=== PATIENT | male | born 1955 | race American Indian/Alaskan Native ===

== ENCOUNTER 2020-10-22 11:28 | Emergency (ER) | payer MEDICARE ==
[2020-10-22 13:38] VITALS: BP 143/71
--- NOTE | 2020-10-22 14:16 | Emergency Department Report ---
ED General Adult HPI - General Chief complaint: Medical Clearance Stated complaint: OUT OF MEDS Time Seen by Provider: 10/22/20 14:11 Source: patient Mode of arrival: Ambulatory Limitations: No Limitations - History of Present Illness Initial comments: 65-year-old male with a past medical history of hypertension and schizophrenia was brought to the ER today by his sister requesting refills on his meds (Invega and triamterene/HCTZ). Sister states that patient was staying in an assisted living but it closed down last year and since then he has been living with her. She states that initially she could not find patient's medication bottles, but she recently found them hidden away in a closet. She states that patient has not taken his medication for few months. She states that patient not sleeping very well at night, otherwise she and patient denies any other symptoms. Complaint: Medication Refill -: month(s) - Related Data Previous Rx's Medication Instructions Recorded Last Taken Type Paliperidone [Invega] 9 mg PO DAILY #30 tab.er.24 10/22/20 Unknown Rx Triamterene/Hydrochlorothiazid 1 each PO DAILY #30 capsule 10/22/20 Unknown Rx [Triamterene-Hctz 37.5-25 mg Cp] ED Review of Systems ROS: Stated complaint: OUT OF MEDS Other details as noted in HPI Comment: All other systems reviewed and negative Constitutional: denies: chills, fever Eyes: denies: eye pain, eye discharge, vision change ENT: denies: ear pain, throat pain, dental pain, hearing loss, epistaxis, congestion Respiratory: denies: cough, shortness of breath, SOB with exertion, SOB at rest, wheezing Cardiovascular: denies: chest pain, palpitations, edema, syncope, paroxysmal nocturnal dyspnea Gastrointestinal: denies: abdominal pain, nausea, diarrhea, constipation, hematemesis Genitourinary: denies: urgency, dysuria, frequency, hematuria, discharge, testicular pain, testicular mass Musculoskeletal: denies: back pain, joint swelling, arthralgia Skin: denies: rash, lesions Neurological: denies: headache, weakness, numbness, paresthesias, confusion, abnormal gait, vertigo Psychiatric: denies: anxiety, depression, auditory hallucinations, visual hallucinations, homicidal thoughts, suicidal thoughts Hematological/Lymphatic: denies: easy bleeding, easy bruising, swollen glands ED Past Medical Hx - Past Medical History Hx Hypertension: Yes Hx Psychiatric Treatment: Yes (schizo,) - Surgical History Past Surgical History?: Yes Additional Surgical History: colostomy - Medications Home Medications: Home Medications Medication Instructions Recorded Confirmed Last Taken Type Paliperidone [Invega] 9 mg PO DAILY #30 tab.er.24 10/22/20 Unknown Rx Triamterene/Hydrochlorothiazid 1 each PO DAILY #30 capsule 10/22/20 Unknown Rx [Triamterene-Hctz 37.5-25 mg Cp] ED Physical Exam - General Limitations: No Limitations General appearance: alert, in no apparent distress - Head Head exam: Present: atraumatic, normocephalic, normal inspection - Neck Neck exam: Present: normal inspection - Respiratory Respiratory exam: Absent: respiratory distress - Cardiovascular Cardiovascular Exam: Present: regular rate - Neurological Exam Neurological exam: Present: alert, CN II-XII intact, normal gait - Psychiatric Psychiatric exam: Present: normal mood. Absent: homicidal ideation, suicidal ideation - Expanded Psychiatric Exam Expanded Focused psych exam: Present: flight of ideas, loose associations - Skin Skin exam: Present: intact ED Course Vital Signs 10/22/20 13:35 Temperature 98.1 F Pulse Rate 66 Respiratory 17 Rate Blood Pressure 143/71 [Right] O2 Sat by Pulse 97 Oximetry Critical care attestation.: If time is entered above; I have spent that time in minutes in the direct care of this critically ill patient, excluding procedure time. ED Disposition Clinical Impression: Medication refill Disposition: DC-01 TO HOME OR SELFCARE Is pt being admited?: No Does the pt Need Aspirin: No Condition: Stable Instructions: Medicine Refill at the Emergency Department Additional Instructions: Start medications today and take as prescribed. Follow up with PCP listed on his discharge instructions. Return to ED if worse,. Prescriptions: Paliperidone [Invega] 9 mg PO DAILY #30 tab.er.24 Triamterene/Hydrochlorothiazid [Triamterene-Hctz 37.5-25 mg Cp] 1 each PO DAILY #30 capsule Referrals: JOHNNY FRANCOIS MD [Staff Physician] - 3-5 Days [facility] [Provider Group] - 3-5 Days Time of Disposition: 14:16
== END 2020-10-22 14:22 | disposition home or self-care (01) ==
LOC: ED 11:28
DX: I10 Essential (primary) hypertension (principal); F20.9 Schizophrenia, unspecified; Z76.0 Encounter for issue of repeat prescription; Z90.89 Acquired absence of other organs
CPT/HCPCS: 99281

== ENCOUNTER 2021-06-14 05:17 | Emergency (ER) | payer SELFPAY ==
[2021-06-14 07:11] VITALS: BP 132/71
--- NOTE | 2021-06-14 07:14 | Emergency Department Report ---
ED General Adult HPI - General Chief complaint: Skin Rash PUI?: No Source: EMS Mode of arrival: Stretcher Limitations: No Limitations - History of Present Illness Initial comments: 65-year-old -[place] male presents to the emergency room requesting colostomy bag replacement. Patient was seen at [facility] yesterday and was discharged on Bactrim and Bactroban the patient has not filled the prescription as he brings his discharge paperwork from there. Patient reports to me that he has been seen at [facility] and [place] and has been kicked out of both hospitals per patient. Patient denies any fever he states he just has discomfort at the site of his colostomy bag. Patient has stable vital signs not acutely ill nontoxic in appearance in no acute distress. Onset/Timin -: days(s) Location: abdomen Severity scale (0 -10): 10 Improves with: none Worsens with: none Associated Symptoms: denies other symptoms Treatments Prior to Arrival: none - Related Data Previous Rx's Medication Instructions Recorded Last Taken Type Paliperidone [Invega] 9 mg PO DAILY #30 tab.er.24 10/22/20 Unknown Rx Triamterene/Hydrochlorothiazid 1 each PO DAILY #30 capsule 10/22/20 Unknown Rx [Triamterene-Hctz 37.5-25 mg Cp] ED Review of Systems ROS: Stated complaint: Other details as noted in HPI Comment: All other systems reviewed and negative ED Past Medical Hx - Past Medical History Hx Hypertension: Yes Hx Psychiatric Treatment: Yes (schizo,) - Surgical History Additional Surgical History: colostomy - Medications Home Medications: Home Medications Medication Instructions Recorded Confirmed Last Taken Type Paliperidone [Invega] 9 mg PO DAILY #30 tab.er.24 10/22/20 Unknown Rx Triamterene/Hydrochlorothiazid 1 each PO DAILY #30 capsule 10/22/20 Unknown Rx [Triamterene-Hctz 37.5-25 mg Cp] ED Physical Exam - General Limitations: No Limitations General appearance: alert, in no apparent distress - Head Head exam: Present: atraumatic, normocephalic - Eye Eye exam: Present: normal appearance - ENT ENT exam: Present: mucous membranes moist, normal external ear exam - Neck Neck exam: Present: normal inspection, full ROM - Respiratory Respiratory exam: Absent: respiratory distress, accessory muscle use - Back Exam Back exam: Present: normal inspection - Neurological Exam Neurological exam: Present: alert, oriented X3, normal gait - Psychiatric Psychiatric exam: Present: normal affect, normal mood - Skin Skin exam: Present: warm, dry, intact, normal color. Absent: rash ED Course Vital Signs 06/14/21 06/14/21 05:25 07:09 Temperature 98.4 F 97.7 F Pulse Rate 82 74 Respiratory 18 20 Rate Blood Pressure 140/90 132/71 [Left] O2 Sat by Pulse 96 95 Oximetry - Reevaluation(s) Reevaluation #1: 06/14/21 10:21 Patient is now wearing the emergency room to be found. Nurse attempted to locate patient to place colostomy bag. Patient will be discharged as he eloped. ED Medical Decision Making - Medical Decision Making 65-year-old -[place] male presents to the emergency room requesting colostomy bag replacement. Patient was seen at [facility] yesterday and was discharged on Bactrim and Bactroban the patient has not filled the prescription as he brings his discharge paperwork from there. Patient reports to me that he has been seen at [facility] and [place] and has been kicked out of both hospitals per patient. Patient denies any fever he states he just has discomfort at the site of his colostomy bag. Patient has stable vital signs not acutely ill nontoxic in appearance in no acute distress. Critical care attestation.: If time is entered above; I have spent that time in minutes in the direct care of this critically ill patient, excluding procedure time. ED Disposition Clinical Impression: Wound check, abscess Disposition: LEFT AWOL/ELOPED Is pt being admited?: No Does the pt Need Aspirin: No Condition: Stable Time of Disposition: 10:22
== END 2021-06-14 10:34 | disposition left against medical advice (07) ==
LOC: ED 05:17
DX: Z48.00 Encounter for change or removal of nonsurgical wound dressing (principal); L02.91 Cutaneous abscess, unspecified; I10 Essential (primary) hypertension
CPT/HCPCS: 99282